=== PATIENT | female | born 1990 | race Caucasian/White ===

== ENCOUNTER 2020-10-22 12:43 | Emergency (ER) | payer SELFPAY ==
[~2020-10-22] VITALS: Ht 170.2 cm; Wt 63.5 kg
--- NOTE | 2020-10-22 13:02 | NUR ---
The patient is [id number], from home, overdose on meth. The patient is alert and oriented to self and place, noted to be anxious and having hard time to finish thought line. Denies pain. In room air and denies SOB. Respiration regular and unlabored. The patient is in ER bed #13. Vital signs WNL. Will continue to monitor the patient.
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
--- NOTE | 2020-10-22 15:34 | NUR ---
[employer] OFFICERS AT BEDSIDE
--- NOTE | 2020-10-22 15:46 | NUR ---
[facility] OFFICER DISLA OF UNIT# [id number] WAS AT THE BEDSIDE TALKING TO THE PATIENT.
[2020-10-22] MEDS ORDERED: ZIPRASIDONE MESYLATE 20 MG/VIAL VIAL IM ONE ×2 (19:58→20:00)
[2020-10-22] MEDS ORDERED: diphenhydrAMINE HCL 50 MG/ML VIAL ONE (19:58)
[2020-10-22] MEDS ORDERED: diphenhydrAMINE HCL 50 MG/ML VIAL IM ONE (20:00)
--- NOTE | 2020-10-22 20:07 | NUR ---
PT INCREASINGLY AGITATED, SCREAMING AND VERBALLY AGGRESSIVE TOWARD STAFF. PT MEDICATED ORDERED BY DR BOWSER
--- NOTE | 2020-10-22 20:16 | NUR ---
BLOOD DRAWN AND SENT TO LAB.
[2020-10-22 20:35] LABS: BILIRUBIN,URINE NEGATIVE (NEGATIVE); COLOR,URINE YELLOW (YELLOW); LEUKOCYTE ESTERASE ,URINE NEGATIVE (NEGATIVE); NITRITE, URINE NEGATIVE (NEGATIVE); PH,URINE 8.5 (5.0-8.0); PROTEIN,URINE TRACE mg/dl (NEGATIVE); UGLUCOSE NEGATIVE (NEGATIVE); UROBILINOGEN,URINE 0.2 EU/dL (0.2)
[2020-10-22 20:37] LABS: BASOPHILS % (AUTO) 0.4 % (0.0-2.0); EOSINOPHILS % (AUTO) 2.1 % (0.0-6.0); HEMATOCRIT 46 % (33-45); HEMOGLOBIN 15.8 g/dL (11.5-14.8); LYMPHOCYTES # (AUTO) 1.8 /CMM (0.8-4.8); LYMPHOCYTES % (AUTO) 17.5 % (20.0-44.0); MEAN CORPUSCULAR HGB CONC 34 g/dl (31.0-36.0); MEAN CORPUSCULAR VOLUME 95 fL (82-100); MONOCYTES % (AUTO) 9.9 % (2.0-12.0); NEUTROPHILS # (AUTO) 7.4 /CMM (1.8-8.9); NEUTROPHILS % (AUTO) 70.1 % (43.0-81.0); PLATELET COUNT (AUTO) 343 /CMM (150-450); RED BLOOD CELL COUNT(AUTO) 4.82 MIL/uL (4.0-5.2); WHITE BLOOD COUNT (AUTO) 10.5 K/uL (4.3-11.0)
[2020-10-22 20:41] LABS: BACTERIA,URINE RARE /HPF (None Seen); SQUAMOUS EPITHELIAL CELL,UR 0-2 /HPF (None Seen); URINE AMORPHOUS PHOSPHATES Moderate /HPF (None Seen); WBC,URINE 0-2 /HPF (0-3)
--- NOTE | 2020-10-22 20:52 | NUR ---
CALL FROM LAB. RAPID COVID NEGATIVE.
[2020-10-22 20:55] LABS: ALANINE AMINOTRANSFERASE 24 U/L (12-78); ALBUMIN 4.4 g/dL (3.4-5.0); ALCOHOL, BLOOD < 3 mg/dL (0-0); ALKALINE PHOSPHATASE 65 U/L (46-116); ASPARTATE AMINOTRANSFERASE 17 U/L (15-37); BILIRUBIN,DIRECT 0.2 mg/dL (0.0-0.2); BILIRUBIN,TOTAL 0.8 mg/dL (0.2-1.0); CALCIUM, SERUM 8.9 mg/dL (8.5-10.1); CARBON DIOXIDE 26 mmol/L (21-32); CHLORIDE 102 mmol/L (98-107); CREATININE 1.1 mg/dL (0.6-1.3); GLUCOSE 117 mg/dL (74-106); POTASSIUM 3.3 mmol/L (3.5-5.1); SODIUM SERUM 132 mmol/L (136-145); TOTAL PROTEIN, SERUM 7.9 g/dL (6.4-8.2); UREA NITROGEN, BLOOD 7 mg/dL (7-18)
[2020-10-22 20:56] LABS: ACETAMINOPHEN 0 ug/ml (10-30)
--- NOTE | 2020-10-23 01:27 | NUR ---
PT AWAKE, ALERT, OX3. RSPONSIVE TO QUESTIONS. AMBULATORY WITH STEADY GAITS. REPORTED WILLING TO LEAVE. PO INTAKE TOLERATED WELL. MADE AWRE . PT IS CLEAR FOR DISCHARGE PER DR SUAZO. CALLED JENNIFER, PT'S FRIEND, PER PT'S REQUEST TO FLOWER ARRANGER THE PT.
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
[2020-10-23 01:59] VITALS: BP 111/74
== END 2020-10-23 01:59 | disposition home or self-care (01) ==
LOC: ER 12:48
DX: F29 Unspecified psychosis not due to a substance or known physiological condition (principal); F15.10 Other stimulant abuse, uncomplicated; F19.10 Other psychoactive substance abuse, uncomplicated; Z20.822 Contact with and (suspected) exposure to COVID-19; R31.29 Other microscopic hematuria
CPT/HCPCS: 36415; 80048; 80076; 80299; 80307; 80320; 81001; 84702; 85025; 87426; 96372 ×2; 99291; C9803; J1200; J3486; G0480